=== PATIENT | male | born 2000 | race Caucasian/White ===

== ENCOUNTER 2023-07-06 18:56 | Inpatient (IN) | payer OTHER ==
[2023-07-06 19:49] VITALS: BMI 24.9
[2023-07-06] MEDS ORDERED: guaiFENesin 600 MG TABLET.ER (FP) PO PRN (20:43)
[2023-07-06] MEDS ORDERED: LOPERAMIDE HCL 2 MG CAPSULE PO PRN (20:43)
[2023-07-06] MEDS ORDERED: POLYETHYLENE GLYCOL (HEALTHYLAX) 3350 17 GM PACKET PO PRN (20:43)
[2023-07-06] MEDS ORDERED: BENZOCAINE/MENTHOL (CHLORASEPTIC ) LOZENGE MM PRN (20:43)
[2023-07-06] MEDS ORDERED: ACETAMINOPHEN 325 MG TABLET (FP) PO PRN (20:43)
[2023-07-06] MEDS ORDERED: ONDANSETRON *ODT* 4 MG TABLET SL PRN (20:43)
[2023-07-06] MEDS ORDERED: MAGNESIUM HYDROX 2400MG/30ML ORAL SUSPENSION 30 ML CUP PO PRN (20:43)
[2023-07-06] MEDS ORDERED: NALOXONE HCL 0.4 MG/ML VIAL IM PRN (20:43)
[2023-07-06] MEDS ORDERED: MAG HYDROX/AL HYDROX/SIMETH 30 ML UNIT-DOSE CUP PO PRN (20:43)
[2023-07-06] MEDS ORDERED: DICYCLOMINE HCL 10 MG CAPSULE PO PRN (20:43)
[2023-07-06] MEDS ORDERED: BENZONATATE 200 MG CAPSULE PO PRN (20:43)
[2023-07-06] MEDS ORDERED: BISMUTH SUBSALICYLATE 524 MG/30 ML PO PRN (20:43)
[2023-07-06] MEDS ORDERED: NALOXONE HCL (KLOXXADO) 8 MG SPRAY NS PRN (20:43)
[2023-07-06] MEDS ORDERED: IBUPROFEN 400 MG TABLET (FP) PO PRN (20:43)
[2023-07-06] MEDS ORDERED: NICOTINE POLACRILEX 2 MG GUM BC PRN (20:49)
[2023-07-06] MEDS ORDERED: chlordiazePOXIDE HCL 25 MG CAPSULE PO PRN (20:50)
[2023-07-06] MEDS ORDERED: chlordiazePOXIDE HCL 25 MG CAPSULE PO SCH (23:00)
[2023-07-06] MEDS: diazePAM 5 MG TABLET PO SCH (23:02)
[2023-07-06] MEDS: MELATONIN 5 MG TABLETS PO SCH (23:04)
[2023-07-06] MEDS: THIAMINE HCL 100 MG TABLET (FP) PO SCH (23:06)
[2023-07-07] MEDS: hydrOXYzine PAMOATE 25 MG CAPSULE (FP) PO PRN (05:39)
[2023-07-07] MEDS: METHOCARBAMOL 500 MG TABLET PO PRN (05:39)
[2023-07-07] MEDS: diazePAM 5 MG TABLET PO PRN (07:45)
[2023-07-07] MEDS: NICOTINE 21 MG/24 HOURS TOPICAL PATCH TD SCH (10:07)
[2023-07-07] MEDS: PRENATAL VITAMINS W/ FOLIC ACID TABLET (FP) PO SCH (10:07)
[2023-07-07 11:33] LABS: HEMATOCRIT 41.8 % (35.4-49); HEMOGLOBIN 14.1 GM/dL (11.7-16.9); MCH 29.9 pg (25.7-33.7); MCHC 33.7 g/dl (32.0-35.9); MEAN CELL VOLUME 88.7 fl (80-96); MEAN PLT VOLUME 8.5 fl (7.5-11.1); PLATELET COUNT 295 10^3/uL (134-434); RBC 4.71 M/mm3 (4.00-5.60); RDW 14.4 % (11.9-15.9); WHITE BLOOD COUNT 7.7 K/mm3 (4.0-10.0)
[2023-07-07 11:37] LABS: CHLORIDE 108 mmol/L (98-107); POTASSIUM 3.9 mmol/L (3.5-5.1); SODIUM 143 mmol/L (136-145)
[2023-07-07 11:41] LABS: ANION GAP 4 mmol/L (4-13); BLOOD UREA NITROGEN 10.1 mg/dL (7-18); CALCIUM 9.6 mg/dL (8.5-10.1); CO2 31 mmol/L (21-32); GLUCOSE,RANDOM 97 mg/dL (74-106)
[2023-07-07 11:42] LABS: ALBUMIN 3.7 g/dl (3.4-5.0)
[2023-07-07 11:44] LABS: CREATININE 0.9 mg/dL (0.55-1.3); SGOT/AST 31 U/L (15-37); SGPT/ALT 28 U/L (13-61)
[2023-07-07 11:46] LABS: BILIRUBIN,TOTAL 0.6 mg/dL (0.2-1)
[2023-07-07 11:47] LABS: ALK PHOS 66 U/L (45-117)
[2023-07-07] MEDS: methaDONE HCL 10 MG TABLET (FOR DETOX USE ONLY) PO ONE (12:43)
[2023-07-07] MEDS: BACITRACIN 0.9 GM PACKET TP SCH (22:07)
[2023-07-08] MEDS ORDERED: chlordiazePOXIDE HCL 25 MG CAPSULE PO SCH (05:00)
[2023-07-08] MEDS: diazePAM 5 MG TABLET PO SCH ×2 (05:48→19:31)
[2023-07-08] MEDS: diazePAM 5 MG TABLET PO PRN (18:15)
[2023-07-08] MEDS: diazePAM 5 MG TABLET PO ONE (23:45)
[2023-07-09] MEDS ORDERED: chlordiazePOXIDE HCL 10 MG CAPSULE PO PRN
[2023-07-09] MEDS ORDERED: chlordiazePOXIDE HCL 10 MG CAPSULE PO SCH (05:00)
[2023-07-09] MEDS: diazePAM 5 MG TABLET PO SCH (05:48)
[2023-07-09] MEDS: methaDONE HCL 10 MG TABLET (FOR DETOX USE ONLY) PO ONE (10:03)
[2023-07-09] MEDS: IBUPROFEN 600 MG TABLET (FP) PO PRN (17:57)
[2023-07-09] MEDS: diazePAM 5 MG TABLET PO ONE (22:08)
[2023-07-09] MEDS: HALOPERIDOL 5 MG TABLET PO ONE (22:08)
[2023-07-10] MEDS ORDERED: chlordiazePOXIDE HCL 10 MG CAPSULE PO SCH (05:00)
[2023-07-10] MEDS: diazePAM 5 MG TABLET PO ONE (06:04)
[2023-07-10 06:44] VITALS: BP 125/67; PULSE 65; RESP 16; TEMP 98.2
[2023-07-10] MEDS: HALOPERIDOL 5 MG TABLET PO ONE (08:31)
[2023-07-11] MEDS ORDERED: chlordiazePOXIDE HCL 10 MG CAPSULE PO ONE (05:00)
[2023-07-11] MEDS ORDERED: methaDONE HCL 10 MG TABLET (FOR DETOX USE ONLY) PO ONE (10:00)
== END 2023-07-10 08:58 | disposition short-term general hospital (02) | DRG 773 ==
LOC: YASAS 18:56 → Y6N 22:08
PROVIDERS: ADMIT Allergy & Immunology; ATTEND Surgery
PROC: HZ2ZZZZ Detoxification Services for Substance Abuse Treatment (ICD-10-PCS; principal; 2023-07-06)
DX: F13.230 Sedative, hypnotic or anxiolytic dependence with withdrawal, uncomplicated (principal); F11.20 Opioid dependence, uncomplicated; F14.20 Cocaine dependence, uncomplicated; F16.20 Hallucinogen dependence, uncomplicated; F17.210 Nicotine dependence, cigarettes, uncomplicated; F20.1 Disorganized schizophrenia; F19.280 Other psychoactive substance dependence with psychoactive substance-induced anxiety disorder; F19.282 Other psychoactive substance dependence with psychoactive substance-induced sleep disorder; Z28.310 Unvaccinated for COVID-19; Z28.9 Immunization not carried out for unspecified reason; Z56.0 Unemployment, unspecified; Z59.00 Homelessness unspecified
CPT/HCPCS: 36415; 80053; 80307; 85027; 86780; 87635; 93005; 93010

== ENCOUNTER 2023-07-07 19:44 | Emergency (ER) | payer OTHER ==
[2023-07-07 19:54] VITALS: BP 128/88; PULSE 70; RESP 18; TEMP 98.4; BMI 24.9
[2023-07-07] MEDS ORDERED: DIPHTH,PERTUSS(ACELL),TET 0.5 ML DISP.SYRIN IM ONE (20:37)
[2023-07-07] MEDS: DIPHTH,PERTUSS(ACELL),TET 0.5 ML DISP.SYRIN IM ONE (20:42)
[2023-07-07] MEDS ORDERED: BACITRACIN ZINC 15 GM TUBE TOPICAL OINTMENT ONE (20:48)
== END 2023-07-07 21:08 | disposition home or self-care (01) ==
LOC: JERFT 19:44
PROC: 3E0234Z Introduction of Serum, Toxoid and Vaccine into Muscle, Percutaneous Approach (ICD-10-PCS; principal; 2023-07-07)
DX: S01.01XA Laceration without foreign body of scalp, initial encounter (principal); X58.XXXA Exposure to other specified factors, initial encounter
CPT/HCPCS: 90471; 90715; 99283-25

== ENCOUNTER 2023-09-16 01:27 | Emergency (ER) | payer OTHER ==
[2023-09-16 01:35] VITALS: BP 133/69; PULSE 59; RESP 18; TEMP 97.8; BMI 24.9
== END 2023-09-16 05:48 | disposition home or self-care (01) ==
LOC: JER 01:27
DX: F19.10 Other psychoactive substance abuse, uncomplicated (principal)
CPT/HCPCS: 99283-25